=== PATIENT | female | born 1945 | race Caucasian/White ===

== ENCOUNTER 2021-01-12 11:27 | Inpatient (IN) | payer MEDICARE, OTHER ==
[~2021-01-12] VITALS: Ht 168 cm; Wt 90.4 kg
[~2021-01-12 11:27] MED LIST: ALDACTONE25 M1 PO; FEOSOL325 MG PO; LASIX20 MG PO; MELATONIN 5 MG1 EACH PO; MIRALAX 238GM238 GM PO; PRAVASTATIN SOD10 MG PO; PROTONIX 40MG T40 MG PO; VITAMIN B-121000 MC1 PO; VITAMIN D310 MCG PO
[2021-01-12 13:09] LABS: BASOPHIL 0.5 % (0-2); EOSINOPHIL 0.4 % (0-7); HCT 28.7 % (37.0-47.0); HGB 9.2 g/dl (12.5-16.0); LYMPHOCYTE 18.5 % (15-48); MCH 30.1 pg (25.0-31.0); MCHC 32.1 g/dL (32.0-36.0); MCV 93.8 fL (78.0-100.0); MONOCYTE 6.9 % (0-12); MPV 9.3 fL (6.0-9.5); NRBC 0; PLT 307 K/uL (150-400); RBC 3.06 M/uL (4.20-5.40); RDW 14.2 % (11.5-14.0); WBC 10.2 K/uL (4.0-10.5)
[2021-01-12 13:23] LABS: ALBUMIN 3.4 g/dL (3.4-5.0); BILIRUBIN - TOTAL 0.3 mg/dL (0.2-1.0); BUN/CREAT RATIO (CALC) 34.7 RATIO; CREATININE 0.75 mg/dL (0.51-0.95); GLOBULIN (CALCULATION) 3.7 g/dL; POTASSIUM 3.7 mmol/L (3.5-5.1); TOTAL PROTEIN 7.1 g/dL (6.4-8.2)
[2021-01-12 14:08] LABS: BILIRUBIN NEGATIVE (NEGATIVE); BLOOD NEGATIVE Ery/uL (NEGATIVE); CLARITY CLEAR (CLEAR); COLOR YELLOW (YELLOW); GLUCOSE (U) NORMAL (NORMAL); LEUKOCYTES 1+ Leu/uL (NEGATIVE); NITRITE NEGATIVE (NEGATIVE); PROTEIN NEGATIVE (NEGATIVE); UROBILINOGEN 0.2 mg/dL (0.2-1.0)
--- NOTE | 2021-01-12 17:10 | NUR ---
PATIENT ARRIVED TO UNIT VIA WHEELCHAIR FROM ER. AOX4. ROOM AIR. FIANCE AT BEDSIDE. ORIENTED TO ROOM AND CALL LIGHT. NO COMPLAINTS AT THIS TIME. WILL CONTINUE TO MONITOR.
[2021-01-12 18:35] LABS: HCT 26.5 % (37.0-47.0); HGB 8.7 g/dL (12.5-16.0)
[2021-01-13 00:35] LABS: HCT 25.1 % (37.0-47.0); HGB 7.8 g/dL (12.5-16.0)
[2021-01-13 06:21] LABS: HCT 22.9 % (37.0-47.0); HGB 7.1 g/dL (12.5-16.0)
[2021-01-13 06:43] LABS: BUN/CREAT RATIO (CALC) 30.4 RATIO; CREATININE 0.69 mg/dL (0.51-0.95); POTASSIUM 3.9 mmol/L (3.5-5.1)
[2021-01-13 22:09] LABS: BASOPHIL 0.5 % (0-2); EOSINOPHIL 0.7 % (0-7); HCT 27.4 % (37.0-47.0); HGB 8.9 g/dl (12.5-16.0); LYMPHOCYTE 21.2 % (15-48); MCH 29.7 pg (25.0-31.0); MCHC 32.5 g/dL (32.0-36.0); MCV 91.3 fL (78.0-100.0); MONOCYTE 8.3 % (0-12); NEUTROPHIL 67.5 % (41-80); NRBC 0; PLT 220 K/uL (150-400); RDW 14.8 % (11.5-14.0); WBC 8.5 K/uL (4.0-10.5)
[2021-01-14 06:24] LABS: EOSINOPHIL 1.3 % (0-7); HCT 27.8 % (37.0-47.0); HGB 8.9 g/dl (12.5-16.0); LYMPHOCYTE 26.7 % (15-48); MCH 29.6 pg (25.0-31.0); MCV 92.4 fL (78.0-100.0); MONOCYTE 8.6 % (0-12); MPV 9.2 fL (6.0-9.5); NEUTROPHIL 60.6 % (41-80); NRBC 0; PLT 238 K/uL (150-400); RBC 3.01 M/uL (4.20-5.40); WBC 7.8 K/uL (4.0-10.5)
[2021-01-14 14:15] LABS: HCT 27.8 % (37.0-47.0)
[2021-01-14 20:17] LABS: HCT 25.7 % (37.0-47.0); HGB 8.5 g/dL (12.5-16.0)
[2021-01-15 06:42] LABS: BASOPHIL 0.5 % (0-2); EOSINOPHIL 1.3 % (0-7); HCT 22.8 % (37.0-47.0); HGB 7.4 g/dl (12.5-16.0); LYMPHOCYTE 25.1 % (15-48); MCHC 32.5 g/dL (32.0-36.0); MCV 92.3 fL (78.0-100.0); MONOCYTE 8.4 % (0-12); MPV 9.2 fL (6.0-9.5); NEUTROPHIL 63.6 % (41-80); NRBC 0.2; PLT 247 K/uL (150-400); RBC 2.47 M/uL (4.20-5.40); RDW 14.7 % (11.5-14.0); WBC 8.3 K/uL (4.0-10.5)
[2021-01-15 06:44] LABS: INR 1.14 (0.9-1.2)
[2021-01-15 08:09] LABS: BUN/CREAT RATIO (CALC) 21.2 RATIO; CREATININE 0.8 mg/dL (0.51-0.95); POTASSIUM 3.7 mmol/L (3.5-5.1)
[2021-01-15 12:39] LABS: BASOPHIL 0.3 % (0-2); EOSINOPHIL 1.3 % (0-7); HCT 25.6 % (37.0-47.0); HGB 8.2 g/dl (12.5-16.0); MCH 29.7 pg (25.0-31.0); MCV 92.8 fL (78.0-100.0); MONOCYTE 6.2 % (0-12); MPV 9.3 fL (6.0-9.5); NEUTROPHIL 42.7 % (41-80); NRBC 0.3; PLT 283 K/uL (150-400); RBC 2.76 M/uL (4.20-5.40); RDW 14.7 % (11.5-14.0); WBC 14.3 K/uL (4.0-10.5)
[2021-01-15 12:41] LABS: LYMPHOCYTE 46.6 % (15-48)
[2021-01-15 12:58] LABS: ALBUMIN 2.5 g/dL (3.4-5.0); BILIRUBIN - TOTAL 0.3 mg/dL (0.2-1.0); BUN/CREAT RATIO (CALC) 17.9 RATIO; CREATININE 0.78 mg/dL (0.51-0.95); GLOBULIN (CALCULATION) 2.8 g/dL; POTASSIUM 3.1 mmol/L (3.5-5.1); TOTAL PROTEIN 5.3 g/dL (6.4-8.2)
[2021-01-15 13:11] LABS: CKMB 1.4 ng/mL (0.0-3.6)
--- NOTE | 2021-01-15 14:25 | NUR ---
PT HAD COMPLICATIONS IN SURGERY. CAME TO I4 WITH O2 TEAM AND ANESTHESIA. PT CAME TO FLOOR INTUBATED, WITH LAY, ARTERIAL LINE, NEOGTT, AND HAD JUST RECEIVED 20MG OR ADDIS LEAVING THE OR. RT CALLED TO BS TO SET VENTILATOR SETTINGS. A-LINE ZEROED, PRECEDEX, FENTANYL, AND LEVOPHED GTTS INITIATED AFTER OR TEAM LEFT ROOM. 500ML LR BOLUS GIVEN WELL. ANTIBIOTIC STARTED. IJ DRESSING REINFORCED. SCD APPLIED. ORAL CARE COMPLETE. FAMILY AT BEDSIDE.
[2021-01-15 14:33] LABS: BILIRUBIN NEGATIVE (NEGATIVE); BLOOD TRACE-INTACT Ery/uL (NEGATIVE); CLARITY CLEAR (CLEAR); COLOR YELLOW (YELLOW); GLUCOSE (U) NORMAL (NORMAL); LEUKOCYTES 3+ Leu/uL (NEGATIVE); NITRITE NEGATIVE (NEGATIVE); PROTEIN NEGATIVE (NEGATIVE); UROBILINOGEN 0.2 mg/dL (0.2-1.0)
[2021-01-15 15:00] LABS: BACTERIA 3+; URINARY WBC 20-50
[2021-01-15 20:28] LABS: HCT 32.7 % (37.0-47.0)
[2021-01-16 06:12] LABS: BASOPHIL 0.1 % (0-2); EOSINOPHIL 0.4 % (0-7); HGB 9.9 g/dl (12.5-16.0); LYMPHOCYTE 6.9 % (15-48); MCH 30.1 pg (25.0-31.0); MCV 91.2 fL (78.0-100.0); MONOCYTE 6.2 % (0-12); MPV 9.4 fL (6.0-9.5); NEUTROPHIL 85.5 % (41-80); NRBC 0; PLT 230 K/uL (150-400); RBC 3.29 M/uL (4.20-5.40); RDW 15.3 % (11.5-14.0); WBC 20.6 K/uL (4.0-10.5)
[2021-01-16 06:19] LABS: BUN/CREAT RATIO (CALC) 15.1 RATIO; CREATININE 0.73 mg/dL (0.51-0.95); MAGNESIUM 1.6 mg/dL (1.8-2.4); POTASSIUM 3.3 mmol/L (3.5-5.1)
[2021-01-16 06:31] LABS: CKMB 2.3 ng/mL (0.0-3.6)
--- NOTE | 2021-01-16 10:00 | NUR ---
PT EXTUBATED WITH RN AND RT AT BEDSIDE. O2 SATS STABLE AT 100% ON 4L NC AT THIS TIME. NO S/S DYSTRESS. BP 128/42.
--- NOTE | 2021-01-16 16:15 | NUR ---
ARTERIAL LINE TO LEFT WRIST D/C PER DR. RODRIGUEZ VERBAL ORDER. LINE WAS NOT DRAWIMG FOR LABS AND THE WAVEFORM WAS NOT GOOD MAJORITY OF THE TIME. WHEN THE WAVEFORM WAS ADEQUATE THE PRESSURED CORRELATED BUT THERE WAS GENERALLY A SIGNIFICANT DIFFERENCE IN THE TWO READINGS. NO REDNESS OR SWELLING AT THE SITE AT TIME OF D/C. PRESSURE HELD AND DRESSING APPLIED. PT INSTRUCTED TO HOLD PRESSURE AND CALL FOR RN IF BLEEDING WAS NOTICED.
[2021-01-17 04:04] LABS: BASOPHIL 0.3 % (0-2); EOSINOPHIL 0.3 % (0-7); HCT 24.9 % (37.0-47.0); HGB 8.1 g/dl (12.5-16.0); LYMPHOCYTE 10.3 % (15-48); MCH 30.5 pg (25.0-31.0); MCHC 32.5 g/dL (32.0-36.0); MCV 93.6 fL (78.0-100.0); MONOCYTE 6.5 % (0-12); MPV 9.2 fL (6.0-9.5); NRBC 0; PLT 198 K/uL (150-400); RBC 2.66 M/uL (4.20-5.40); RDW 15.3 % (11.5-14.0); WBC 11.2 K/uL (4.0-10.5)
[2021-01-17 04:52] LABS: BUN/CREAT RATIO (CALC) 14.7 RATIO; CREATININE 0.75 mg/dL (0.51-0.95); POTASSIUM 3.5 mmol/L (3.5-5.1)
--- NOTE | 2021-01-17 05:34 | NUR ---
AROUND 2330 TEMP WAS 100.1. STEM ROLLER OPERATOR NOTIFIED. TORADOL AND BLOOD CX X2 WERE ORDERED. REPEAT TEMP CHECK WAS 98.7 ORALLY. ER, RN
[2021-01-17] MEDS ORDERED: ALTACE5 MG PO (08:23)
[2021-01-17] MEDS ORDERED: TOPROL XL 50 MG50 MG PO (08:23)
[2021-01-17] MEDS ORDERED: VOLTAREN **OUT50 MG PO (08:24)
[2021-01-18 04:32] LABS: BASOPHIL 0.2 % (0-2); EOSINOPHIL 2.4 % (0-7); HCT 25.7 % (37.0-47.0); HGB 8.1 g/dl (12.5-16.0); LYMPHOCYTE 13.2 % (15-48); MCH 29.6 pg (25.0-31.0); MCHC 31.5 g/dL (32.0-36.0); MCV 93.8 fL (78.0-100.0); MONOCYTE 6.7 % (0-12); MPV 8.9 fL (6.0-9.5); NEUTROPHIL 76.8 % (41-80); NRBC 0; PLT 213 K/uL (150-400); RBC 2.74 M/uL (4.20-5.40); RDW 14.8 % (11.5-14.0); WBC 9.1 K/uL (4.0-10.5)
[2021-01-18 04:58] LABS: BUN/CREAT RATIO (CALC) 15.6 RATIO; CREATININE 0.64 mg/dL (0.51-0.95); POTASSIUM 3.3 mmol/L (3.5-5.1)
[2021-01-19 13:29] LABS: HCT 31.6 % (37.0-47.0); HGB 9.9 g/dl (12.5-16.0); MCH 29.3 pg (25.0-31.0); MCHC 31.3 g/dL (32.0-36.0); MCV 93.5 fL (78.0-100.0); MPV 8.8 fL (6.0-9.5); RBC 3.38 M/uL (4.20-5.40); RDW 14.4 % (11.5-14.0); WBC 11.9 K/uL (4.0-10.5)
[2021-01-19 13:40] LABS: BUN/CREAT RATIO (CALC) 4.6 RATIO; CREATININE 0.65 mg/dL (0.51-0.95); POTASSIUM 3.4 mmol/L (3.5-5.1)
--- NOTE | 2021-01-19 15:38 | NUR ---
01/19/21 Ms. Benitez has a home in [facility] her 34 y/o grandson also lives. She also lives stays in [place], [place] with her fiance. Ms. Campbell was independent in the home and community proior to admission. She does not use DME and drives. - Ms. Benitez does not believe she requires any DME or HH at discharge.
--- NOTE | 2021-01-19 16:41 | NUR ---
PATIENT STATED SHE HAD A DARK BLOODY STOOL, DR SOTELO WAS CALLED/ HE WAS IN THE HOSPITAL AND CAME TO PATIENT'S ROOM. HE STATED THAT HE THOUGHT IT WAS OLD, IT WAS MORE DARK THAT BRIGHT RED. WANT TO GET NEW LABS TO CHECK H&H. CALLED HIM WITH RESULTS AND HE STATED TO CONTINUE TO MONITOR. PATIENT CALLED OUT AND STATED THAT SHE HAD ANOTHER BOWEL MOVEMENT AND THAT IT WAS BRIGHT RED, IT WAS ALREADY DISPOSED OF AND I DID NOT GET TO SEE. TOLD HER IF SHE HAD ANOTHER ONE TO MAKE SURE THE NURSE GOT TO SEE IT, TO HELP DETERMAIN WHAT TO EXPLAIN TO THE DOCTOR.
[2021-01-19 19:37] LABS: HCT 26.4 % (37.0-47.0); HGB 8.5 g/dL (12.5-16.0)
--- NOTE | 2021-01-19 23:10 | NUR ---
CALLED DR SOTELO REGARDING PATIENT HAVING TWO LARGE BOWEL MOVEMENTS WITH BRIGHT RED BLOOD IN THEM. H&H STABLE UP TO 8.5. VSS, PT IS NOT HYPOTENSIVE. PER DR SOTELO ORDER COAG PROFILE AND BLEEDING SCAN FOR THE MORNING. CALL WITH ANY ABNORMAL RESULTS.
--- NOTE | 2021-01-19 23:41 | NUR ---
DR SOTELO CALLED BACK REGARDING EARLIER PHONE CALL AND STATED TO GIVE ONE UNIT OF BLOOD.
[2021-01-20 00:07] LABS: INR 1.14 (0.9-1.2); PTT 39.6 SECONDS (24.4-34.7)
[2021-01-20 04:46] LABS: BASOPHIL 0.6 % (0-2); EOSINOPHIL 4.7 % (0-7); HCT 26.7 % (37.0-47.0); HGB 8.6 g/dl (12.5-16.0); LYMPHOCYTE 15.3 % (15-48); MCH 29.5 pg (25.0-31.0); MCHC 32.2 g/dL (32.0-36.0); MCV 91.4 fL (78.0-100.0); MONOCYTE 9.9 % (0-12); NRBC 0; PLT 282 K/uL (150-400); RBC 2.92 M/uL (4.20-5.40); RDW 14.7 % (11.5-14.0); WBC 8.2 K/uL (4.0-10.5)
[2021-01-20 05:12] LABS: BUN/CREAT RATIO (CALC) 10.9 RATIO; CREATININE 0.64 mg/dL (0.51-0.95); POTASSIUM 3.3 mmol/L (3.5-5.1)
[2021-01-20 13:10] LABS: HCT 30.5 % (37.0-47.0); HGB 9.8 g/dL (12.5-16.0)
[2021-01-20 19:04] LABS: HCT 27.1 % (37.0-47.0); HGB 8.9 g/dL (12.5-16.0)
[2021-01-21 05:42] LABS: BASOPHIL 0.7 % (0-2); EOSINOPHIL 6.3 % (0-7); HCT 25.9 % (37.0-47.0); HGB 8.3 g/dl (12.5-16.0); MCH 29.6 pg (25.0-31.0); MCV 92.5 fL (78.0-100.0); MONOCYTE 9.6 % (0-12); NEUTROPHIL 65.1 % (41-80); NRBC 0; PLT 321 K/uL (150-400); RDW 14.9 % (11.5-14.0); WBC 8.1 K/uL (4.0-10.5)
[2021-01-21 05:53] LABS: BUN/CREAT RATIO (CALC) 10.6 RATIO; CREATININE 0.66 mg/dL (0.51-0.95); POTASSIUM 3.7 mmol/L (3.5-5.1)
[2021-01-22 08:47] LABS: BASOPHIL 0.7 % (0-2); EOSINOPHIL 5.9 % (0-7); HCT 28.9 % (37.0-47.0); HGB 9.3 g/dl (12.5-16.0); LYMPHOCYTE 14.3 % (15-48); MCH 29.4 pg (25.0-31.0); MCHC 32.2 g/dL (32.0-36.0); MCV 91.5 fL (78.0-100.0); MONOCYTE 8.1 % (0-12); MPV 8.9 fL (6.0-9.5); NEUTROPHIL 68.3 % (41-80); NRBC 0; PLT 410 K/uL (150-400); RBC 3.16 M/uL (4.20-5.40); RDW 14.5 % (11.5-14.0); WBC 9.6 K/uL (4.0-10.5)
[2021-01-22 09:12] LABS: BUN/CREAT RATIO (CALC) 12.5 RATIO; CREATININE 0.64 mg/dL (0.51-0.95); POTASSIUM 3.5 mmol/L (3.5-5.1)
--- NOTE | 2021-01-22 12:38 | NUR ---
01/22/21 Patient is being discharged. Patient states she is not interested in HH services or DME.
--- NOTE | 2021-01-22 13:43 | NUR ---
DISCUSSED DISCHARGE INSTRUCTIONS WITH PATIENT. INSTRUCTED TO MAKE FOLLOW UP APPOINTMENTS, UNABLE TO REACH [facility] OFFICE AT THIS TIME. IJ REMOVED, PRESSURE AND SANDBAG APPLIED TO AREA. NO BLEEDING NOTED, PT TOLERATED WELL. PT IN STABLE CONDITION. D/C PER DR SOTELO AFTER MD ASSESSMENT. HOME WITH
== END 2021-01-22 13:10 | disposition home or self-care (01) | DRG 329 ==
LOC: FER 11:27 → FMS 15:43 → FICU 15:43 → FMS 15:43 → FICU 01-15 14:28 → FMS 01-18 07:35 → FICU 01-18 07:35 → FMS 01-18 07:35
PROVIDERS: Anesthesiology; Internal Medicine; Nurse Practitioner Family; Surgery; ADMIT Allergy & Immunology Allergy
PROC: 0DJ08ZZ Inspection of Upper Intestinal Tract, Via Natural or Artificial Opening Endoscopic (ICD-10-PCS; principal; 2021-01-12)
PROC: 0DJD8ZZ Inspection of Lower Intestinal Tract, Via Natural or Artificial Opening Endoscopic (ICD-10-PCS; 2021-01-12)
PROC: 30233N1 Transfusion of Nonautologous Red Blood Cells into Peripheral Vein, Percutaneous Approach (ICD-10-PCS; 2021-01-13)
PROC: 30233N1 Transfusion of Nonautologous Red Blood Cells into Peripheral Vein, Percutaneous Approach (ICD-10-PCS; 2021-01-15)
PROC: 0DTL0ZZ Resection of Transverse Colon, Open Approach (ICD-10-PCS; 2021-01-15 10:00)
PROC: 30233N1 Transfusion of Nonautologous Red Blood Cells into Peripheral Vein, Percutaneous Approach (ICD-10-PCS; 2021-01-19)
DX: K57.31 Diverticulosis of large intestine without perforation or abscess with bleeding (principal); I46.9 Cardiac arrest, cause unspecified; I21.A1 Myocardial infarction type 2; R57.0 Cardiogenic shock; D62 Acute posthemorrhagic anemia; I42.8 Other cardiomyopathies; K56.7 Ileus, unspecified; Z20.822 Contact with and (suspected) exposure to COVID-19; K57.90 Diverticulosis of intestine, part unspecified, without perforation or abscess without bleeding; K44.9 Diaphragmatic hernia without obstruction or gangrene; I50.9 Heart failure, unspecified; I11.0 Hypertensive heart disease with heart failure; Z95.810 Presence of automatic (implantable) cardiac defibrillator; Z90.49 Acquired absence of other specified parts of digestive tract; Z90.710 Acquired absence of both cervix and uterus
CPT/HCPCS: 36415; 36430; 36600; 71045; 78278; 80048; 80053; 81001; 82270; 82553; 82803; 83605; 83735; 83880; 84484; 85014; 85018; 85025; 85610; 85730; 86850; 86900; 86901; 86922; 87040; 87077; 87088; 87186; 93005; 94002; 94010; 97110; 97161; 97166; 97530; A4641; A9560; C9113; J0171; J0694; J1170; J1885; J1956; J2250; J2354; J2370; J2405; J2704; J3010; J3475; J3480; J7030; J7120; P9016; Q9967; U0002